=== PATIENT | male | born 1990 | race Asian ===

== ENCOUNTER 2022-05-27 18:34 | Emergency (ER) | payer SELFPAY ==
[~2022-05-27] VITALS: Ht 167.6 cm; Wt 83.9 kg
--- NOTE | 2022-05-27 20:05 | NUR ---
DR. FLORES WITH PATIENT IN TRIAGE FOR MSE.
[2022-05-27 20:06] VITALS: BP_SYST 135
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
[2022-05-27] MEDS ORDERED: IBUP-1971 PO (22:21)
[2022-05-27] MEDS ORDERED: SOM350 PO (22:22)
--- NOTE | 2022-05-27 23:20 | NUR ---
ATTEMPTED TO D/C PATIENT, NOT FOUND IN WAITING ROOM.PT LEFT WITHOUT DISCHARGE INSTRUCTTIONS.
[2022-05-27 23:22] VITALS: BP_SYST 135
--- NOTE | 2022-05-27 23:22 | NUR ---
Nissa gardiner in [facility] - 05/28/22 at 0057 by [email or web address] ATTEMPTED TO DISCHARGE PATIENT, PT NOT FOUND IN WAITING ROOM. PATIENT LEFT WITHOUT DISCHARGE INSTRUCTION.
== END 2022-05-27 23:22 | disposition home or self-care (01) ==
LOC: SED 18:34
DX: S13.4XXA Sprain of ligaments of cervical spine, initial encounter (principal); S33.5XXA Sprain of ligaments of lumbar spine, initial encounter; S70.02XA Contusion of left hip, initial encounter; Z79.899 Other long term (current) drug therapy; V89.2XXA Person injured in unspecified motor-vehicle accident, traffic, initial encounter; Y93.89 Activity, other specified; Y92.89 Other specified places as the place of occurrence of the external cause; Y99.8 Other external cause status
CPT/HCPCS: 72040-TC; 72100-TC; 72170-TC; 99284